=== PATIENT | female | born 1965 | race Caucasian/White ===

== ENCOUNTER 2016-10-31 05:19 | Observation (INO) | payer OTHER ==
[2016-10-31] VITALS (7 sets, daily range): BP systolic 143–183; BP diastolic 62–99; PULSE 64–77; RESP 12–26; O2SAT 97–99
[~2016-10-31] VITALS: Ht 170.2 cm; Wt 88.2 kg
[~2016-10-31 05:19] MED LIST: NO ACTIVE MEDS
[2016-10-31] MEDS ORDERED: 0.9% Sodium Chloride 1,000 ML IV ONE ×2 (05:42→06:39)
[2016-10-31] MEDS ORDERED: Haloperidol 5 mg/mL Inj IVPUSH ONE (05:45)
[2016-10-31] MEDS ORDERED: Ondansetron 2 mg/mL 2 mL Inj IVPUSH ONE (05:45)
[2016-10-31 05:52] LABS: BASOPHILS % (AUTO) 0.1 % (0-3); EOSINOPHILS % (AUTO) 0 % (0-5); MONOCYTES % (AUTO) 7.5 % (4-12); Mean Corpuscular Hemoglobin 30.6 pg (27.0-35.0); NEUTROPHILS % (AUTO) 83.4 % (40-74); Platelet Count 266 bil/L (150-400)
[2016-10-31 06:17] LABS: Magnesium 1.8 mg/dL (1.6-2.6)
--- NOTE | 2016-10-31 06:35 | ED.REPORT ---
HPI-Abd Pain F 40 and Over Date of Service Oct 31, 2016 ED Provider: Fredis Maynard MD Patient is a 51 y/o female w/ a hx of cyclic vomiting syndrome, presenting to the ER c/o right upper quadrant abdominal pain and vomiting onset 4 days ago. She rates her pain as 10/10 in severity. She has a history of similar acute episodes exhibited throughout the past 4 year and her last cyclic vomiting episode occurred in November of 2015. Associated symptoms are nausea, and cough. The patient denies back pain, fever, or any other symptoms. The patient does use marijuana but hasn't used for approximately 10 days. She has been seen at [facility] twice and [facility] once for these symptoms already. She was discharged with Zofran without relief. At [facility] yesterday, she was observed to have a run of afib. She does not take any medications daily. Nursing Notes Stated Complaint: VOMITING Chief Complaint: Female Abdominal Pain Nursing Notes Reviewed: Yes Allergies: Coded Allergies: codeine (Verified Allergy, Severe, ANGIOEDEMA, 10/31/16) throat swelling tetracycline (Verified Allergy, Severe, N&V, 10/31/16) doxycycline (Verified Allergy, Unknown, vomit, 10/31/16) Penicillins (Verified Adverse Reaction, Severe, GI UPSET, RASH, 10/31/16) Iodinated Contrast Media - Oral and (Verified Adverse Reaction, Unknown, ) Patient reports being told not to have iodine contrast because of "firecracker" feelings, refuses iodine contrast. Miscellaneous Medications ([No Active Meds]) General Time Seen by MD: 06:34 Chief Complaint Abdominal pain, Vomiting moderate Hx Obtained From: Patient Arrived By: Walk-in Sudden in Onset?: Yes Onset Occurred: Yesterday Symptom Duration: Since onset Progression since Onset: Constant Severity: Current: Pain level 10 out of 10 Severity: Maximum: Pain level 10 out of 10 Associated with: Reports: Nausea, Vomiting, Denies: Back pain Recent Healthcare: Recent doctor visit Similar Sx Previous: Yes Risk Factors )( AAA Risk Stratification No Hypertension, No Smoking Risk factors reviewed Past Medical History Past Medical History Cyclic vomiting syndrome - last acute episode November 2015 Past Surgical History endometrial ablation Bilat knee scope tumor removal R arm Reports: , Hysterectomy Smoking History Never Smoker Social History Marijuana use Alcohol Use: Denies alcohol use Drug Use: THC Other Social History: Good social support Ambulatory Status Independent Review of Systems Constitutional: Denies: Fever Respiratory: Reports: Non-productive cough GI: Reports: Abdominal pain, Nausea, Vomiting, Denies: Diarrhea Musculoskeletal: Denies: Back pain Complete sys rev & neg: except as marked. Physical Exam Vital Signs Vital Signs (First) Date Time Temp Pulse Resp B/P Pulse Ox O2 Delivery O2 Flow Rate FiO2 10/31/16 05:24 36.8 77 26 183/87 99 Initial VS: Reviewed, Vital signs normal Head / Eyes: Atraumatic, Normocephalic Neck: Full range of motion Skin: Warm, Dry, No cyanosis Neurologic: Alert, Oriented, Nonfocal General/Constitutional: Awake, Alert Distress / Hydration: Positive: Distress severe Pt is in severve distress, holding face over emesis basin. Pt is red faced, tearful, running nose, and crying out Respiratory / Chest: Breath sounds NL, Breath sounds = bilat, No respiratory distress, No rales, No rhonchi, No wheezing, No stridor Cardiovascular: Heart rate NL, Regular rhythm, Heart sounds NL Abdomen: Soft, No guarding Tenderness/Guarding/Rebound: Positive: Tender diffuse (mild) Back: Atraumatic Lower Extremity / Pelvis / MS: No edema Interpretation & Diagnostics Lab Results Interpretation Result Diagram: 10/31/16 0545 10/31/16 0545 Test 10/31/16 05:45 10/31/16 06:20 White Blood Count 21.0th/mm3 (3.8-10.1) Red Blood Count 4.57mil/mm3 (3.90-5.20) Hemoglobin 14.0g/dL (12.0-15.6) Hematocrit 40.2% (35.0-46.0) Mean Corpuscular Volume 88.0fL (81-100) Mean Corpuscular Hemoglobin 30.6pg (27.0-35.0) Mean Corpuscular Hemoglobin Concent 34.8% (32.0-37.0) Red Cell Distribution Width 12.9% (12.3-15.4) Platelet Count 266bil/L (150-400) Neutrophils (%) (Auto) 83.4% (40-74) Lymphocytes (%) (Auto) 8.6% (14-46) Monocytes (%) (Auto) 7.5% (4-12) Eosinophils (%) (Auto) 0% (0-5) Basophils (%) (Auto) 0.1% (0-3) Sodium Level 141mEq/L (134-144) Potassium Level 3.2mEq/L (3.5-5.2) Chloride Level 102mEq/L (97-108) Carbon Dioxide Level 19mmol/L (18-29) Blood Urea Nitrogen 15mg/dL (6-24) Creatinine 0.83mg/dL (0.57-1.00) Estimat Glomerular Filtration Rate 104mL/min (>59) Glucose Level 146mg/dL (60-99) Calcium Level 9.4mg/dL (8.5-10.1) Magnesium Level 1.8mg/dL (1.6-2.6) Total Bilirubin 0.7mg/dL (0.0-1.2) Aspartate Amino Transf (AST/SGOT) 24U/L (0-50) Alanine Aminotransferase (ALT/SGPT) 27U/L (0-32) Alkaline Phosphatase 94U/L (25-150) Total Protein 7.1g/dL (6.4-8.4) Albumin 4.1g/dL (3.4-5.0) Lipase 38U/L (13-60) Hold Morillo Top Tube Received (Received) Hold Urine Received (Received) Re-Eval/Medical Decision Re-Evaluation/Progress #1: Time of Eval: 06:45 Re-Evaluation/Progress Note: Pt rechecked. Discussed plan for admission. All questions answered at this time. Pt understands and agrees with plan. Re-Evaluation/Progress #2: Time of Eval: 07:22 Re-Evaluation/Progress Note: Pt rechecked. Pt reports to not feeling better but looks better. Pt is no longer vomiting and appears comfortable. Consultation : Referral / Consult Name: Liza Tuttle DO Consulted With: Hospitalist Call Returned at: 08:29 Ed Tech: Will see patient, Agrees with eval, Agrees with plan, Accepts admit Note: Discussed patients case. Accepts admit. Counseled Regarding: Diagnosis, Lab results, Need for admission Discharge & Departure Primary Impression: Cyclic vomiting syndrome Vomiting Intractability: intractable Nausea presence: with nausea Qualified Code: G43.A1 - Cyclical vomiting, intractable Disposition: ADMITTED TO HOSPITAL Discharge Condition All VS Reviewed: Yes Condition: Stable Referrals: Irma Sims MD (PCP) Scribe Attestation Portions of this note were transcribed by Breanna Ambrose & Angie Nur. I, Dr. Rivers personally performed the history, physical exam and medical decision-making; I reviewed and confirmed the accuracy of the information in the transcribed note. Signed by: Breanna Nur., Janak, 10/31/2016 and 08:31. copies to: Irma Sims MD, Kirk H MD Oct 31, 2016 06:34 Breanna Ambrose Oct 31, 2016 06:51 ANGIE NUR Oct 31, 2016 08:09
[2016-10-31] MEDS ORDERED: MetoCLOpramide 5 mg/mL 2 mL Inj IVPUSH ONE (06:40)
[2016-10-31] MEDS ORDERED: Acetaminophen IV 1,000 MG in IV Premix 1 EACH IV ONE (06:40)
[2016-10-31] MEDS ORDERED: Dexamethasone 10 mg/mL Inj IVPUSH ONE (06:40)
[2016-10-31] MEDS ORDERED: Promethazine Inj 50 MG in 0.9% Sodium Chloride-Pha MIX 100 ML IV ONE (06:40)
[2016-10-31] MEDS ORDERED: Alum-Mag Hydrox-Simeth 30 mL Suspension PO PRN (08:30)
--- NOTE | 2016-10-31 08:45 | NUR ---
Arrival Pt. arrived to room 247-1 MOC from the ED. Pt. arrived in pain stating her RUQ is hurting, 10/10 pain and feels nausea. Pt. states unable to take PO med. made aware. No c/o CP or SOB. Will continue to monitor.
[2016-10-31] MEDS: 0.9% Sodium Chloride 1,000 ML IV SCH ×2 (09:04→18:30)
[2016-10-31] MEDS ORDERED: Potassium Chloride 20 mEq SR Tablet PO ONE (09:10)
[2016-10-31] MEDS ORDERED: Promethazine Inj 12.5 MG in 0.9% Sodium Chloride-Pha MIX 100 ML IV ONE (10:50)
[2016-10-31] MEDS ORDERED: Morphine PF 1 mg/mL 10 mL Inj IV PRN (10:50)
[2016-10-31] MEDS ORDERED: Potassium Chloride Inj 20 MEQ in Dextrose 5% 250 ML IV ONE (10:50)
[2016-10-31 11:10] LABS: Lipase 38 U/L (13-60)
[2016-10-31] MEDS ORDERED: Acetaminophen IV 1,000 MG in IV Premix 1 EACH IV PRN (11:10)
[2016-10-31] MEDS: Ondansetron 2 mg/mL 2 mL Inj IVPUSH PRN ×2 (11:22→21:02)
[2016-10-31] MEDS ORDERED: Ondansetron 2 mg/mL 2 mL Inj IVPUSH PRN (11:30)
--- NOTE | 2016-10-31 13:22 | DRSVH ---
PROCEDURE: US ABDOMEN, LIMITED ([id number]) INDICATIONS: r/o cholecystitis TECHNIQUE: Real-time focused scanning was performed of the abdomen, with image documentation. COMPARISON: None. FINDINGS: No gallstones. Gallbladder wall is mildly thickened to 6-7 mm. Pericholecystic fluid not ed. Positive sonographic Iniguez sign noted. Common bile duct is not dilated measuring [address] IMPRESSION: Gallbladder wall thickening, pericholecystic fluid and positive sonographic Iniguez sign suspicious for acute acalculus cholecystitis. Dictated by: Kenzie Bah MD, PhD on 10/31/2016 at 13:20 Approved by: Kenzie Bah MD, PhD on 10/31/2016 at 13:21
--- NOTE | 2016-10-31 14:29 | PCM.CONSUR ---
Subjective Date of Service: Oct 31, 2016 History of Present Illness Patient is a 51-year-old female with history of cyclical vomiting syndrome who presented to [facility] ED this morning with 4 days of nausea and vomiting. Over the last 3 days she has been seen first in the [facility] emergency department and then also yesterday the [facility] emergency department. She states this is somewhat similar to her prior episodes of cyclic vomiting the most recent episode happened 10 months ago. The main difference with this is that she has right upper quadrant pain that is continuing to hang on. Typically episodes last one to 2 days and then she is fine afterward. She states that she does not usually suffer like this during prior episodes. She has experienced no fever or chills, but has heartburn and diarrhea. She is vomiting green bile but no hematemesis. She endorses smoking marijuana a couple of times per month. Even with her prior visits to the emergency department she has not been able to obtain pain relief for the last [address] scan done at [facility] 10/28/2016 did not show evidence of cholecystitis however ultrasound performed in the emergency department did show evidence of mild gallbladder thickening 6-7 mm and positive Iniguez's sign. Liver enzymes are normal, she has a leukocytosis of 21,000. Of note patient had EGD and colonoscopy 05/01/2016 which she reports were normal. Reason for Consultation Possible cholecystitis Allergy Allergies: Coded Allergies: codeine (Verified Allergy, Severe, ANGIOEDEMA, 10/31/16) throat swelling tetracycline (Verified Allergy, Severe, N&V, 10/31/16) doxycycline (Verified Allergy, Unknown, vomit, 10/31/16) Penicillins (Verified Adverse Reaction, Severe, GI UPSET, RASH, 10/31/16) Iodinated Contrast Media - Oral and (Verified Adverse Reaction, Unknown, ) Patient reports being told not to have iodine contrast because of "firecracker" feelings, refuses iodine contrast. Medications ([No Active Meds]) (Reported) Cephalexin (Keflex) 500 Mg Capsule 500 MG PO TID Prescribed by: ZEUS AGEE MD Pantoprazole DR (Protonix) 40 Mg Tablet 40 MG PO BID Prescribed by: ZEUS AGEE MD oxyCODONE-Acetaminophen 5-325 mg (oxyCODONE-Acetaminophen 5-325 mg) 1 Each Tablet 1 TAB PO Q6H PRN PRN For Pain Prescribed by: ZEUS AGEE MD Past Surgical History Surgeries: Yes Patient/Family Past Surgical: Positive for:: Accept Blood Products?, Denies:: Anesthesia Reactions, Blood Transfuse Reaction, Blood Transfusions, Malignant Hyperthermia Additional Information Patient had hysterectomy with bilateral salpingo-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 fib noted at [facility] yesterday.) Gastrointestinal History HX of GI Problems?: Yes Gastrointestinal History: Positive for:: Gastroesphageal Reflux Heartburn Other History Diabetes: Yes (Possible) Other History/Comments Patient works as a home care nurse and lives in [place]. She has 2 sons and . Social History Hx Alcohol Use: NoHx Substance Use: NoHx Tobacco Use: No Smoking Status: Never Smoker Family History Family History: Patient states no history of illness within first and second-degree relatives. Objective Exam Vital Signs & I/O Vital Sign- Last 8 Hours Date Time Temp Pulse Resp B/P Pulse Ox O2 Delivery O2 Flow Rate FiO2 10/31/16 08:36 36.8 66 12 143/62 99 Room Air 10/31/16 07:50 66 12 143/62 Intake and Output- Last 8 Hour 10/31/16 Cumulative From/Thru 07:00 10/31/16 05:24 - 10/31/16 06:00 Intake Total 1000 ml 1000 ml Balance 1000 ml 1000 ml Intake IV Total 1000 ml 1000 ml Lab & Micro Results Laboratory Tests Test 10/31/16 05:45 10/31/16 06:20 10/31/16 14:00 White Blood Count 21.0th/mm3 (3.8-10.1) Red Blood Count 4.57mil/mm3 (3.90-5.20) Hemoglobin 14.0g/dL (12.0-15.6) Hematocrit 40.2% (35.0-46.0) Mean Corpuscular Volume 88.0fL (81-100) Mean Corpuscular Hemoglobin 30.6pg (27.0-35.0) Mean Corpuscular Hemoglobin Concent 34.8% (32.0-37.0) Red Cell Distribution Width 12.9% (12.3-15.4) Platelet Count 266bil/L (150-400) Neutrophils (%) (Auto) 83.4% (40-74) Lymphocytes (%) (Auto) 8.6% (14-46) Monocytes (%) (Auto) 7.5% (4-12) Eosinophils (%) (Auto) 0% (0-5) Basophils (%) (Auto) 0.1% (0-3) Sodium Level 141mEq/L (134-144) Potassium Level 3.2mEq/L (3.5-5.2) Chloride Level 102mEq/L (97-108) Carbon Dioxide Level 19mmol/L (18-29) Blood Urea Nitrogen 15mg/dL (6-24) Creatinine 0.83mg/dL (0.57-1.00) Estimat Glomerular Filtration Rate 104mL/min (>59) Glucose Level 146mg/dL (60-99) Calcium Level 9.4mg/dL (8.5-10.1) Magnesium Level 1.8mg/dL (1.6-2.6) Total Bilirubin 0.7mg/dL (0.0-1.2) Aspartate Amino Transf (AST/SGOT) 24U/L (0-50) Alanine Aminotransferase (ALT/SGPT) 27U/L (0-32) Alkaline Phosphatase 94U/L (25-150) Total Protein 7.1g/dL (6.4-8.4) Albumin 4.1g/dL (3.4-5.0) Amylase Level 33U/L (28-100) Lipase 38U/L (13-60) Hold Morillo Top Tube Received (Received) Hold Urine Received (Received) Result Diagram: 10/31/1654410/31/16544 Review of Systems: A comprehensive review of systems was conducted with the patient and found to be negative except as above in the History of Present Illness. H&P Surgical Exam Exam General: Alert, Oriented X3, Moderate Distress HEENT: Within normal limits & unremarkable Neck: Within normal limits & unremarkable Cardiac: Regular Rate/Rhythm Abdomen: Other (right upper quadrant pain to palpation) Assessment & Plan Assessment 51-year-old female with history of cyclic vomiting syndrome has 4 days of nausea and emesis with persistent right upper quadrant pain. Patient had normal EGD and colonoscopy 6 months ago. Abdominal ultrasound shows possible thickening of the gallbladder wall and positive Iniguez's sign with probe though CT scan on 10/28/16 at [facility] showed no evidence of acute cholecystitis or cholelithiasis. HIDA scan ordered by hospitalist team. Case discussed with Dr. Bonilla of gastroenterology. He is willing to perform EGD if symptoms persist after cholecystectomy or gallbladder disease is ruled out. Upon recheck patient reiterates that this episode is different than previous episodes and is really suffering, she would prefer to go ahead with cholecystectomy. Risks and benefits of the procedure were discussed. She is aware that there is a possibility that this procedure may not completely relieve her symptoms. Pain Management: Per hospitalist team Pain Evaluation: Pain not Controlled Plan: 1. Immediate Cholecystectomy was not possible due to emergent urologic case therefore we will proceed with HIDA scan. Cholecystectomy pending results of HIDA scan. Risks and benefits of cholecystectomy were discussed. 2. If symptoms persist once cholecystitis is ruled out or postprocedure, recommend formal GI consult with possible EGD. 3. Pain control and antibiotics per hospitalist team. Thank you for this interesting consult, we will continue to follow. Resuscitation Status: CPR: Attempt Resuscitation Attending Statement: I personally interviewed and examined the pt, and I agree with Dr. Purvis's assessment and plan. HIDA scan pending. copies: Rigoberto Rush MD, Erika R DO Oct 31, 2016 14:29 Rigoberto Rush MD Nov 03, 2016 06:59 Lipase 38U/L (13-60) Hold Morillo Top Tube Received (Received) Hold Urine Received (Received) Result Diagram: 10/31/16 0545 10/31/1645 Review of Systems: Constitutional: Negative, except as otherwise mentioned in the history above. Ophthalmologic: Negative, except as otherwise mentioned in the history above. Cardiovascular: Negative, except as otherwise mentioned in the history above. Respiratory: Negative, except as otherwise mentioned in the history above. Gastrointestinal: Negative, except as otherwise mentioned in the history above. Genitourinary: Negative, except as otherwise mentioned in the history above. Musculoskeletal: Negative, except as otherwise mentioned in the history above. Neurological: Negative, except as otherwise mentioned in the history above. Psychiatric: Negative, except as otherwise mentioned in the history above. Hematologic/Lymphatic: Negative, except as otherwise mentioned in the history above. Allergic/Immunologic: Negative, except as otherwise mentioned in the history above. Sonali Purvis DO Oct 31, 2016 14:29
[2016-10-31 14:30] LABS: INR 1.05 ratio
--- NOTE | 2016-10-31 14:37 | NUR ---
Social Work Note: Screen Note Data& Assessment: EMR reviewed. SW met with pt and pt son at bedside to check in and assess for any unmet needs, SW role explained. SW phone number provided on pt whiteboard. Justyna Bobby is a 51 year old female under observation beginning on 10/31/2016 for intractable nausea and vomiting. Pt has [facility] insurance coverage and sees Yogi Sims MD for primary care. Pt lives in [place] with family and is independent at baseline. Pt son confirmed good family support at home. Pt primary complaint at this time is having her pain managed. RN aware. Pt and pt son deny any other needs at this time. SW to continue to follow if any other needs arise. Plan: Anticipated discharge home via POV when medically ready. Pt and pt son deny any other needs at this time. SW to continue to follow if any other needs arise. DAISY Doan
[2016-10-31] MEDS ORDERED: Pantoprazole 4 mg/mL 10 mL Inj IVPUSH ONE (15:30)
[2016-10-31] MEDS: Ampicillin-Sulbactam Inj 3,000 MG in 0.9% Sodium Chloride 100 ML IV SCH ×2 (15:53→21:07)
--- NOTE | 2016-10-31 16:13 | NUR ---
Pain/Heart Burn/HIDA Scan Pt. still c/o of anterior RUQ pain that radiates to her posterior RUQ. Pt. also states feeling intense heart mike and requesting zantac. Hospitalist was made aware and Dr. Rush put in an order for protonix IV push once. I administered med. and Pt. states "heart burn" is subsiding. Pt. is NPO for HIDA scan that is estimated to start at ~1800 today (10/31/2016). Pt. made aware that no narcotics can be given for pain. Pt. states she understands. Will continue to monitor.
--- NOTE | 2016-10-31 18:43 | NUR ---
Pain/BP Pt. still c/o RUQ pain and heart burn. Pt. NPO for HIDA scan at about 1900 and is not to be given narcotics prior to procedure. Pt. was given a Kpad to help with pain but she states "feeling no difference". Pts. blood pressure at ~1630 was 173/99, made aware. Will continue to monitor.
--- NOTE | 2016-10-31 20:49 | NUR ---
Off Unit Pt is off unit with Jessica at 1900 to diagnostic imaging via bed. Addendum: 10/31/16 at 2051 by CAT DIANE RN Pt is back on unit at 2044
--- NOTE | 2016-10-31 21:00 | PCM.HPMED ---
Subjective Date of Service Oct 31, 2016 Primary Provider: Admitting Physician: Liza Tuttle DO Primary Care Physician: Irma Sims MD Attending Physician: Liza Tuttel DO Chief Complaint: nausea, RUQ pain History of Present Illness: Patient is a 51-year-old female with history of cyclical vomiting syndrome who presented to [facility] ED this morning with 3 days of nausea and vomiting. Over the last 3 days she has been seen first in the [facility] emergency department and then also yesterday the [facility] emergency department. She states this is somewhat similar to her prior episodes of cyclic vomiting the most recent of those episodes happened 10 months ago. The symptoms are more severe this time. Typically episodes for her last one to 2 days and then she is fine afterward. She states that she does not usually suffer during prior episodes. She c/o nausea but has no epigastric pain. She does endorse radiation of RUQ pain to the thoracic spine. She has anorexia. She denies hematemesis and hematochezia. At the time of this interview she has just come from the ED, has received number of anti emetic medications as well as ativan and was very sleepy. She endorses smoking marijuana once every 10 days. States "I doubt it" if she knew marijuana would cause nausea and vomiting. CT scan done at [facility] 10/28/2016 did not show evidence of cholecystitis however ultrasound performed in the emergency department did show evidence of possible gallbladder thickening and positive Iniguez's sign. Liver enzymes are normal, she has a leukocytosis of 21,000. Potassium was 3.2. Patient denies fever, chills, recent weight loss/weight gain. She has some back pain, but denies chest pain, leg pain, leg swelling, urinary problems. She was given haldol, phenergan, reglan, decadron and atival all IV in the ED. She says she had absolutely no relief after all these agents. She is not responding to my questions very well but her son was in the room and was very helpful with the interview. Review of Systems: Gen.: No weight gain patient has been having fevers and malaise Eyes: no visual disturbances or blurring vision HEENT: No nose/throat drainage, no pain in ears or throat, no hearing loss Cardiac: No chest pain, or dyspnea Pulmonary: positive for cough, denies chest pain GI: No anorexia nausea vomiting blood or black in the stool : no dysuria hematuria urinary frequency or decrease in urine output Musculoskeletal: Joint swelling no joint pain , positive for back pain Neuro: No syncope, seizures no loss of consciousness no new focal weakness, numbness or tingling Endocrine: No new heat or cold intolerances polyuria or polydipsia Hematology: No lymphadenopathy or easy bleeding or bruising noted skin: No new rashes, stasis dermatitis All review of systems negative except as stated in the HPI and above. Allergies Coded Allergies: codeine (Verified Allergy, Severe, ANGIOEDEMA, 10/31/16) throat swelling tetracycline (Verified Allergy, Severe, N&V, 10/31/16) doxycycline (Verified Allergy, Unknown, vomit, 10/31/16) Penicillins (Verified Adverse Reaction, Severe, GI UPSET, RASH, 10/31/16) Iodinated Contrast Media - Oral and (Verified Adverse Reaction, Unknown, ) Patient reports being told not to have iodine contrast because of "firecracker" feelings, refuses iodine contrast. Home Medications She does not take home meds PMH Cyclical vomiting syndrome Surgical History , hysterectomy, endometrial ablation, B/Knee scope, tumor removal from R arm Family History Works as a homecare nurse, is a heavy truck driver. Never smoked tobacco, murillo snot drink. Recreational marjuana once every ten days. Lives with her Social History Occupation: homecare nurse Hx Alcohol Use: Yes Hx Substance Use: No Hx Tobacco Use: No Smoking Status: Never Smoker Living Arrangement: with Family Exam Vital Signs Vital Sign - Last Date Time Temp Pulse Resp B/P Pulse Ox O2 Delivery O2 Flow Rate FiO2 10/31/16 08:36 36.8 66 12 143/62 99 Room Air Intake and Output 10/30/16 10/30/16 10/31/16 Cumulative From/Thru 15:00 23:00 07:00 10/31/16 05:24 - 10/31/16 06:00 Intake Total 1000 ml 1000 ml Balance 1000 ml 1000 ml Intake IV Total 1000 ml 1000 ml Exam General: NAD, laying in bed, not actively vomiting. Only answering questions intermittently HEENT: NCAT Eyes: [place] conjunctivae. No ptosis Neck: No masses, trachea midline, no thyromegaly Lungs: CTA with normal respiratory effort, no crackles or wheezes CV: RRR, no murmurs/rubs/gallops, normal PMI GI: Soft, RUQ tenderness is present with no hepatosplenomegaly. Normal bowel sounds in all 4 quadrants MSK: no digital cyanosis Skin: Warm and dry Psych: mood is tired, affect resigned Lab and Diagnostics Result Diagram: 10/31/1645 10/31/1645 X-Rays, CTs and MRIs PROCEDURE: US ABDOMEN, LIMITED ([id number]) INDICATIONS: r/o cholecystitis TECHNIQUE: Real-time focused scanning was performed of the abdomen, with image documentation. COMPARISON: None. FINDINGS: No gallstones. Gallbladder wall is mildly thickened to 6-7 mm. Pericholecystic fluid noted. Positive sonographic Iniguez sign noted. Common bile duct is not dilated measuring 4 mm in diameter. IMPRESSION: Gallbladder wall thickening, pericholecystic fluid and positive sonographic Iniguez sign suspicious for acute acalculus cholecystitis. Dictated by: Kenzie Bah MD, PhD on 10/31/2016 at 13:20 Approved by: Kenzie Bah MD, PhD on 10/31/2016 at 13:21 Assessment & Plan This is a 51-year-old white female with Past medical history of cyclical vomiting syndrome, presenting to the ER with right upper quadrant pain and uncontrollable nausea and vomiting. CT abdomen done in [facility] prior to this admission is negative for cholelithiasis cystitis or cholelithiasis. Assessment #1 RUQ pain: Acalculous Cholecystitis biliary colic -- She has no elevation in LFT, ordered pancreatic enzymes both of which are negative. No hyperbilirubinemia, no fevers -- She did have right upper quadrant tenderness on palpation, ordered a ultrasound of right upper quadran that is revealing for positive sonographic Iniguez sign, and thickened gallbladder gould. It was read as a Calculus cholecystitis. --Consult Gen Surg -- Started patient on Unasyn ( she reportedly has a penicillin allergy but tolerated the first dose finding, discussed this with pharmacy and they feel it is okay to continue to give her the medication as she has had no rash or increase in her baseline symptoms) -- Gen. surgery initially planned on taking her to the OR after discussing risks and benefits with patient but it appears surgery got postponed due to an unexpected urological the OR -- Ordered HIDA scan: Results are pending -- Zofran for nausea control ( we chose this agent because all other agents have not worked for patient and as she got enough of all the other IV agents so far, Zofran will probably be the safest choice) -- Morphine for pain control (verified with pt that she has toelrated it fine in the past) Assessment #2 elevated blood pressures: -- Enalapril 0.625 mg Q6H PRN with parameters #3 Hypokalemia: -- Tried depleting with by mouth agent, patient declined -- Give her IV 20 mEq of potassium -- We will continue to monitor -- Magnesium lab is ordered and within normal #4 Hyperglycemia : Blood glucose was 140 fasting -- A1c is ordered Disposition: Patient agreed for cholecystectomy as this will rule out gallbladder as etiology of her pain and nausea vomiting. We will pursue GI consult for EGD if her pain and symptoms do not resolve after cholecystectomy. Pain Evaluation: Adequate Pain Control GI Prophylaxis: Proton Pump Inhibitor VTE Prophylaxis: Sub-Q Heparin (Unfractionated) Resuscitation Status: CPR: Attempt Resuscitation (her son is her POA, followed by her ) Time spent 35 min Liza Tuttle DO Oct 31, 2016 09:07
--- NOTE | 2016-10-31 21:16 | DRSVH ---
PROCEDURE: NM HIDA SCAN WITH CCK PHARMACEUTICAL: 5.4 mCi Tc-99m mebrofenin IV; 1.8 mcg CCK IV. INDICATIONS: NAUSEA AND VOMITING. R/O BILIARY CHOLIC. TECHNIQUE: Following intravenous administration of Tc-99m mebrofenin, sequential anterior abdominal images were obtained. To evaluate the contractile response of the gallbladder in response to Cholecystokinin (CC K), sincalide (0.02 g/kg) was administered by slow intravenous infusion approximately 60 minutes aft er the administration of the radiopharmaceutical. Sequential imaging was continued for [address] the start of CCK infusion. Gallbladder ejection fraction was calculated. COMPARISON: None. FINDINGS: Biliary scan: There is normal tracer uptake and excretion by the liver. There is normal visualizati on of the intrahepatic ducts, common bile duct, and gallbladder. There is normal tracer transit into the duodenum. CCK stimulation: There is normal contractile response of the gallbladder to CCK infusion. The calcu lated gallbladder ejection fraction is 47%; normal values are above 35%. It has been shown that any patient abdominal pain after CCK administration is related to the rate of CCK injection, rather than to any underlying gallbladder disease (Clinical Nuclear Medicine 2012; 37: 63-70. Journal of Nuclear Medicine 2014; 55: 1-9). IMPRESSION: Normal examination. Dictated by: Kenzie Bah MD, PhD on 10/31/2016 at 21:13 Approved by: Kenzie Bah MD, PhD on 10/31/2016 at 21:15
[2016-11-01] VITALS (15 sets, daily range): BP systolic 136–177; BP diastolic 79–99; PULSE 58–100; RESP 14–30; O2SAT 93–100
[2016-11-01] MEDS: Heparin 5,000 Unit/mL Inj SUBQ SCH ×3 (00:42→17:36)
[2016-11-01] MEDS: 0.9% Sodium Chloride 1,000 ML IV SCH ×2 (01:00→18:57)
[2016-11-01] MEDS: Ampicillin-Sulbactam Inj 3,000 MG in 0.9% Sodium Chloride 100 ML IV SCH ×3 (02:19→13:00)
[2016-11-01] MEDS: Ondansetron 2 mg/mL 2 mL Inj IVPUSH PRN ×2 (02:30→05:46)
--- NOTE | 2016-11-01 06:15 | NUR ---
Nausea/Pain Pt had pain controlled after HIDA scan and nausea was reactive to Zofran. However this morning around 0530 pt had very increased pain and nausea that so far has not reacted as well to the morphine and Zofran. Pt is dry heaving and was only able to get a little bit of clear phlegm up. Pain during dry heaves is 10/10 and 6/10 at baseline. Addendum: 11/01/16 at 06 by CAT DIANE RN MD burks.
[2016-11-01] MEDS ORDERED: Morphine PCA 1 mg/mL 30 mL Inj IV PRN (06:35)
[2016-11-01] MEDS ORDERED: MetoCLOpramide 5 mg/mL 2 mL Inj IVPUSH PRN (06:35)
[2016-11-01 06:42] LABS: Mean Corpuscular Volume 86.2 fL (81-100)
[2016-11-01] MEDS ORDERED: Pantoprazole 4 mg/mL 10 mL Inj IVPUSH SCH (07:30)
[2016-11-01] MEDS ORDERED: Promethazine 50 mg/mL Inj IV PRN (08:50)
--- NOTE | 2016-11-01 08:55 | PCM.PNSURG ---
Subjective Visit Information: Reason for Visit Intractable Nausea/Vomiting Surgery/Surgery Date Post-Op Day # Date of Admission: Oct 31, 2016 at 08:34 Hospital Day # Subjective: yesterday evening underwent a HIDA scan --> normal exam. Pt still complains of nausea and upper abd pain and heartburn Objective Objective arousable in bed Abd: mild tenderness subxiphoid location and RUQ, no peritoneal signs WBC slightly lower at 17.5 today Vital Sign- Last 8 Hours Date Time Temp Pulse Resp B/P Pulse Ox O2 Delivery O2 Flow Rate FiO2 11/01/16 02:24 36.7 58 16 149/88 95 Room Air Intake and Output- Last 8 Hour 11/01/16 Cumulative From/Thru 07:00 10/31/16 05:24 - 11/01/16 05:26 Intake Total 997 ml 1997 ml Balance 997 ml 1997 ml Intake IV Total 997 ml 1997 ml # Voids 3 3 Result Diagram: 11/01/16 0608 11/01/16 0608 Assessment & Plan Impression Upper abd pain, nausea, heartburn Hx of cyclic vomiting syndrome Conflicting US report with a normal HIDA scan Problems: Plan Recommend upper endoscopy by GI service Continue IV abx for now Anti-nausea meds VTE Prophylaxis: Sub-Q Heparin (Unfractionated) Resuscitation Status: CPR: Attempt Resuscitation (her son is her POA, followed by her ) Rigoberto Rush MD Nov 01, 2016 08:55
[2016-11-01] MEDS ORDERED: Lactated Ringer's 1,000 ML IV ONE ×2 (10:10)
--- NOTE | 2016-11-01 10:41 | PCM.ENDEGD ---
EGD Date of Service: Nov 01, 2016 Physician Liza Tuttle DO Pre Procedure Diagnosis: Abdominal pain Post Procedure Dx & Findings: Erosive esophagitis gastric erosions and duodenal superficial ulcers Procedure Esophagogastroduodenoscopy PROCEDURE IN DETAIL: After proper sedation, Olympus video endoscope was inserted into patient's mouth and esophagus was successfully intubated. Scope introduced esophagus. Esophagus showed normal shiny whitish mucosa consistent with squamous cell component. Z line was noted at 40 cm from the incisors. Circumferential inflammation and exudate consistent with ulcerative esophagitis. LA grade C and D. This was biopsied. Scope further advanced to the stomach. With the exception of the antrum, the stomach showed normal shiny mucosa with normal appearing rugae folds without any ulcer mass erosion. Antrum showed some millimeter erosions. This was biopsied. Cardia fundus body antrum pylorus were all visualized. Retroflexion was done. Stomach was easily inflated and deflatable using air. Scope further events to the distal duodenum. Duodenum revealed normal villous structures and folds. However patient had several superficial linear ulcerations noted from the bulb to the first pass of the duodenum. Some of the linear ulceration was long as about a centimeter. Biopsies obtained. Impression Erosive esophagitis severe. Gastric erosion. Duodenumal superficial ulcers. These findings are not not acute. Patient had these symptoms 3 days ago. I have hard time believing that findings cause severe symptoms 3 days ago. Therefore cholecystitis is still in differential. Recommendation We did not find acute cause of her abdominal pain. Therefore reconsult surgery. Start protonix 40 mg IV Q daily for 2 days then switch to Protonix 40 mg PO Q daily Repeat EGD in 8 weeks to cjeck for esophageal healing Stop all NSIAD's. Presedation Assessment Risks and Benefits Informed consent was obtained from the patient after all risks and benefits including but not limited to drug reaction, infection, pain, bleeding, perforation, as well as alternatives were discussed. Patient monitoring Continuous pulse oximetry, cardiac monitoring, blood pressure monitoring, IV access, and oxygen at 2L per nasal cannula. Complications There were no periprocedural complications identified. Post Procedure Plan Post Procedure Recommendations 1. Restrict activities today. 2. Resume normal activities in the morning. 3. Resume medications. 4. GERD behavioral modification: - Avoid fatty, acidic, spicy, large meals - Do not lie down after meals - Do not eat or drink anything for at least 2 1/2 hours before going to bed at night - Discontinue tobacco and alcohol - Decrease or avoid caffeine - Avoid chocolate and mints - Decrease weight - Avoid aspirin and non steroidal anti-inflammatory agents (NSAID) such as Aleve, Advil, Mobic, Naproxen, Ibuprofen, etc 5. Add proton pump inhibitor. Take 30 minutes before 1st meal of the day. 6. Patient informed of normal post procedure side effects as bloating, drowsiness, blood streaking in the stool 7. If gastric biopsy reveal H.pylori, continue with appropriate treatment 8. If small bowel biopsy reveals celiac, continue with appropriate treatment 9. Please don't hesitate to call me with any questions Jay Bonilla MD Nov 01, 2016 10:41
--- NOTE | 2016-11-01 10:42 | PCM.ANEP1 ---
Post Anesthesia PACU Phase 1 Assessment Vital Signs Vital Signs Date Time Temp Pulse Resp B/P Pulse Ox O2 Delivery O2 Flow Rate FiO2 11/01/16 10:35 71 16 171/90 97 Room Air 11/01/16 10:30 64 16 158/84 100 Nasal Cannula 4 11/01/16 10:27 36.7 67 23 175/86 97 Nasal Cannula 4 11/01/16 10:03 36.3 72 16 136/83 95 Room Air 11/01/16 08:53 36.9 60 18 177/88 97 Room Air Anesthetic Administered: GA Level of Alertness: Awake, talking SARABIA's with Equal Strength: Yes Pain: Yes Pain Scale Score: 3 Nausea or Vomiting: No CV Function & Hydration Stable: Yes Airway Device: Oxygen Delivery: Room Air Lungs: Clear to Auscultation, Normal Air Movement Dermatome Level: T2 ([place]) PACU Phase 2 Assessment Complications: No Follow up Care: N/A Patient Instructions Provided: N/A Giancarlo Mathis MD Nov 01, 2016 10:42
--- NOTE | 2016-11-01 10:42 | PCM.HPANE ---
Patient Data Surgeon Admitting Provider:Liza Tuttle DO Attending Provider:Liza Tuttle DO Primary Care Physician:Irma Sims MD Other Provider: Reason for Visit Intractable Nausea/Vomiting Ht/WT & BMI Height (Feet): 5 Height (Inches): 7 Weight (Kilograms): 88.18 Body Mass Index Allergies Coded Allergies: codeine (Verified Allergy, Severe, ANGIOEDEMA, 10/31/16) throat swelling tetracycline (Verified Allergy, Severe, N&V, 10/31/16) doxycycline (Verified Allergy, Unknown, vomit, 10/31/16) Penicillins (Verified Adverse Reaction, Severe, GI UPSET, RASH, 10/31/16) Iodinated Contrast Media - Oral and (Verified Adverse Reaction, Unknown, ) Patient reports being told not to have iodine contrast because of "firecracker" feelings, refuses iodine contrast. Past Anesthesia History Anesthesia History: Denies:: Abnormal Airway, Anesthesia Reactions, Difficult Intubation, Fam Anesthesia Reaction, Fam Malignant Hypertherm, Malignant Hyperthermia Diabetes History Hx Diabetes?: Yes (Possible) MRSA MRSA: No Medications Reported Medications [No Active Meds] No Conflict Check 02/20/14 History History of ENT Problems?: No HEENT History: Denies:: Abnormal Airway Cataracts Difficult Intubation Dysphagia Glaucoma Hearing Problem Sinus Problem TMJ Denture Type: None Teeth Condition: Missing Teeth Hx of Heart Problems?: No Cardiovascular History: Positive for:: AICD Abdominal Aortic Aneurism Atrial Fibrillation Cardiac Surgery Chest Pain Congestive Heart Failure Coronary Artery Disease Edema Heart Murmur (ECHO 04/2013) Hypertension Irregular Heartbeat (C/OF PALPITATIONS one run of A. fib noted at [facility] yesterday.) Pacemaker Peripheral Vascular Rheumatic Fever Thrombophlebitis Valvular Heart Disease Hx of Respiratory Problem?: No Respiratory History: Denies:: Asthma COPD Chest Surgery Cough Dyspnea Emphysema Hemoptysis Oxygen Administration Pneumonia Pulmonary Embolism Tuberculosis Use of C-PAP Machine Use of Inhalers / NEBS Hx Neurologic Problems?: No Neurological History: Denies:: Alzheimer's Disease CVA Dementia Dizziness Headaches Multiple Sclerosis Parkinson's Disease Peripheral Neuropathy Seizures TIA Hx of GI Problems?: Yes Gastrointestinal History: Positive for:: Gall Bladder Disease Gastroesphageal Reflux Denies:: Cirrhosis Diverticulitis Gastrointestinal Bleeding Heartburn Hepatitis Hiatal Hernia Liver Disease Rectal Bleeding Hx of Problems?: No Genitourinary History: Denies:: HX of Hemodialysis Kidney Stones Urinary Tract Infection HX of Peritoneal Dialysis: No Female Hx: Denies:: Currently Endometriosis Pelvic Inflammatory Problems with Breasts? Skin History: Denies:: History Skin Disorders? Pressure Ulcers Hx Musculoskeletal Problems?: No Musculoskeletal History: Denies:: Back Injury Degenerative Joint Fibromyalgia Joint Replacement Musculoskeletal Trauma Myasthenia Gravis Osteoarthritis Rheumatoid Arthritis Systemic Lupus Psycho Social History: Denies:: Anxiety Bipolar Disorder Hx Depression Suicide Attempt Hx Surgeries?: Yes Hx Any Other Health Problems?: No History Blood Transfusions: Positive for:: Accept Blood Products? Denies:: Blood Transfuse Reaction Blood Transfusions Hx Diabetes: Yes (Possible) Occupation: homecare nurse Hx Alcohol Use: YesHx Substance Use: No Smoking Status: Never Smoker Have You Smoked inLast 12 mo: Yes (Marijuana) Stop/Bang Treated for Sleep Apnea?: No Do You Have a CPAP Machine?: No S-Snoring: Do You Snore Loudly: No T-Tired: feel tired, fatigued: No O-Obsered: Observed not breath: No P-Blood Pressure: treated: No B- Body Mass Index > 35 kg/m2: No A- Age over 50: Yes N- Neck Large Circumference: No G- Gender Male: No SHAWN Total Score: 0 Risk Assessment Category Category 1A: Patient has history of documented sleep apnea, and HAS NOT received any narcotic, sedative or anesthesia administration during this stay. Category 1B: Patient has history of documented sleep apnea, and HAS received any narcotic , sedative or anesthesia administration during this stay Category 2: Patient has SUSPECTED Obstructive Sleep Apnea, and HAS received any narcotic , sedative or anesthesia administration during this stay. Category 3: Patient has SUSPECTED Obstructive Sleep Apnea and HAS NOT received narcotic, sedative or anesthesia administration during this stay. Category 4: Outpatient in Procedural Areas with known sleep apnea or who screen positive for High Risk via the STOP/BANG questionnaire. Exam Exam Vital Signs Vital Signs Date Time Temp Pulse Resp B/P Pulse Ox O2 Delivery O2 Flow Rate FiO2 11/01/16 08:53 36.9 60 18 177/88 97 Room Air 11/01/16 02:24 36.7 58 16 149/88 95 Room Air General Appearance: Alert, Oriented X3, Moderate Distress HEENT/AIRWAY: MP 2, Neck Movement (FROM) Lungs: Clear to Auscultation, Normal Air Movement Heart: Exam Unremarkable, Regular Rate/Rhythm, No Murmurs/Rubs/Gallops Meds/Labs/Diagnostics Admission Meds Current Medications Potassium Chloride/Dextrose/ Water (Potassium Chloride Inj/D5W) 260 ml @ 130 mls/hr ONCE ONCE IV Last administered on 10/31/16 11:49; Start 10/31/16 at 10: 50; Stop 10/31/16 at 12:49; Status DC Pantoprazole 40 mg 40 mg DAILYAC IVPUSH Last administered on 11/01/16 06:42; Start 11/01/16 at 07:30 Ampicillin Sodium/ Sulbactam Sodium/ Sodium Chloride (Unasyn Inj/ Normal Saline ) 100 ml @ 200 mls/hr Q6 IV Last administered on 11/01/16 02:19; Start at 14:30; Stop 11/01/16 at 08:49; Status DC Pantoprazole (Protonix Inj) 40 mg ONCE ONCE IVPUSH Last administered on 15:39; Start 10/31/16 at 15:30; Stop 10/31/16 at 15:32; Status DC Heparin Sodium (Porcine) (Heparin Inj) 5,000 unit Q8 SUBQ Last administered on 11/01/16 08:37; Start 11/01/16 at 00:30 Labs Test 10/31/16 05:45 10/31/16 06:20 10/31/16 14:00 11/01/16 06:08 Neutrophils (%) (Auto) 83.4% (40-74) Lymphocytes (%) (Auto) 8.6% (14-46) Monocytes (%) (Auto) 7.5% (4-12) Eosinophils (%) (Auto) 0% (0-5) Basophils (%) (Auto) 0.1% (0-3) Magnesium Level 1.8mg/dL (1.6-2.6) Amylase Level 33U/L (28-100) Lipase 38U/L (13-60) Hold Morillo Top Tube Received (Received) Hold Urine Received (Received) Prothrombin Time 11.2sec (8.1-12.5) Prothromb Time International Ratio 1.05ratio White Blood Count 17.5th/mm3 (3.8-10.1) Red Blood Count 4.70mil/mm3 (3.90-5.20) Hemoglobin 14.1g/dL (12.0-15.6) Hematocrit 40.5% (35.0-46.0) Mean Corpuscular Volume 86.2fL (81-100) Mean Corpuscular Hemoglobin 30.0pg (27.0-35.0) Mean Corpuscular Hemoglobin Concent 34.8% (32.0-37.0) Red Cell Distribution Width 12.9% (12.3-15.4) Platelet Count 250bil/L (150-400) Sodium Level 140mEq/L (134-144) Potassium Level 3.7mEq/L (3.5-5.2) Chloride Level 103mEq/L (97-108) Carbon Dioxide Level 18mmol/L (18-29) Blood Urea Nitrogen 14mg/dL (6-24) Creatinine 0.94mg/dL (0.57-1.00) Estimat Glomerular Filtration Rate 90mL/min (>59) Glucose Level 108mg/dL (60-99) Calcium Level 9.2mg/dL (8.5-10.1) Total Bilirubin 0.8mg/dL (0.0-1.2) Aspartate Amino Transf (AST/SGOT) 22U/L (0-50) Alanine Aminotransferase (ALT/SGPT) 34U/L (0-32) Alkaline Phosphatase 89U/L (25-150) Total Protein 6.3g/dL (6.4-8.4) Albumin 4.0g/dL (3.4-5.0) Plan Impression Patient chart reviewed, patient interviewed and anesthestic plan with risks, benefits, and alternatives discussed, and informed consent obtained. NPO per Anesth. Guidelines: Yes ASA Physical Status: ASA3 Severe Disease Anesthetic Plan: GA, MAC Bene/Risks/Altern/Consents: Yes HP Complete Prior to Induction: Yes Giancarlo Mathis MD Nov 01, 2016 09:52
--- NOTE | 2016-11-01 11:01 | CONS ---
[address] [address] CONSULTATION REPORT PATIENT: EMORY FRY : 1965 MR#: [id number] ADMIT: 10/31/2016 JOB ID: [id number] DATE OF SERVICE: REASON FOR CONSULTATION: It was pleasure seeing the patient at [facility] GI service for abdominal pain. HISTORY OF PRESENT ILLNESS: This is a 51-year-old lady who had a EGD and colonoscopy done when she was 50 and she was told everything was okay. This was all done in April. However she comes in with cyclic vomiting syndrome with abdominal pain for the past 3 days. She went to several emergency rooms. She went to [facility] and the day before she went to [facility]. They discharged her after giving her IV fluids and medical treatment. She also had similar episode more than 10 months ago and this resolved on its own. However, symptoms are now more severe. This is increased intensity with intensity of the pain and nausea and vomiting. Essentially she has had multiple episodes of nausea and vomiting. Then this was followed by cramping right upper quadrant pain radiating to her back. It does not seem to go away. Because it was getting worse, she came to the emergency department especially with nausea, vomiting, and inability to keep anything down. In the emergency department, they did an ultrasound which showed gallbladder wall thickening 5-6 mm with pericholecystic fluids with positive Iniguez sign. Liver enzymes are normal. She had leukocytosis of 21,[address] Rush saw this patient. Dr. Rush did a HIDA scan and HIDA scan was normal. Therefore he contacted me yesterday saying this is definitely not cholecystitis and wanted my evaluation to see the cause of abdominal pain. When I saw her this morning, she was on BEHAVIORAL HEALTH CASE MANAGER pump due to the pain and the BEHAVIORAL HEALTH CASE MANAGER pump was improving the symptoms. She is still nauseated. No vomiting this morning, but she has not eaten anything. No fever, chills, headaches, blurred vision, dizziness, lightheadedness, chest pain, shortness of breath. Abdominal pain pretty much the same as she described above. No blood in the stools or black stools. Denies skin rash, joint pain. No easy bruising. PAST MEDICAL HISTORY: Cyclic vomiting. PAST SURGICAL HISTORY: Hysterectomy, , endometrial ablation, tumor removal of the right arm. FAMILY HISTORY: Noncontributory. SOCIAL HISTORY: She is a home care nurse. Denies history of alcohol, substance abuse, or tobacco, but she does use marijuana once every 10 days. PHYSICAL EXAMINATION: Vital signs include temp of 36.3, pulse 72, respirations 16, blood pressure 136/83. Head and neck no icterus, no lymphadenopathy. Lungs clear. Cardiovascular regular rate and rhythm, normal S1, S2. Abdomen is soft. Right upper quadrant tenderness mild without guarding rebound or firmness, however with Iniguez sign. Extremities: No pitting edema of the ankles. Skin shows no jaundice. No palmar erythema. No Wayne's nails No Dupuytren's contracture. LABORATORY DATA: White count is 17,500, hemoglobin 14.1, platelets of 250,000. Coags: INR of 1.05. Chemistry LFTs showed ALT of 34, AST of 22, total bili of 6.3. Yesterday ALT was 23, which was absolutely normal. Amylase and lipase were normal. IMPRESSION: This is a 51-year-old lady with abdominal pain. Dr. Rush believes this is not consistent with cholecystitis. However, there is some evidence such as the thickened gallbladder wall and pericholecystic fluid. This in my opinion that there is inflmmation. HIDA scan was normal. I had a long conversation with Dr. Rush, the surgeon, who was not planning on taking the gallbladder out because he does not believe that this is cholecystitis. On my examination and my history, I think cholecystitis is still in the differential. However, because other differential could be peptic ulcer disease, we will do the esophagogastroduodenoscopy. Patient was placed n.p.o. EGD - If EGD does not explain the acute abd pain, please consider doing CT of abdomen and pelvis to find other causes of abd pain other than gallbladder. MTDD
[2016-11-01] MEDS ORDERED: Promethazine Inj 12.5 MG in Dextrose 5%-Pha MIX 50 ML IM PRN (11:25)
[2016-11-01] MEDS ORDERED: Propofol 10,000 mCg/mL 20 mL Inj ONE ×2 (12:29→16:20)
[2016-11-01] MEDS ORDERED: Neostigmine 1 mg/mL 10 mL Inj ONE (12:29)
[2016-11-01] MEDS ORDERED: Dexamethasone 4 mg/mL Inj ONE (12:29)
[2016-11-01] MEDS ORDERED: Glycopyrrolate 0.2 mg/mL 5 mL Inj ONE (12:29)
[2016-11-01] MEDS ORDERED: Rocuronium 10 mg/mL 5 mL Inj ONE (12:29)
[2016-11-01] MEDS ORDERED: fentaNYL-PF 50 mCg/mL 2 mL Inj ONE (12:29)
[2016-11-01] MEDS ORDERED: MetoCLOpramide 5 mg/mL 2 mL Inj ONE (12:29)
[2016-11-01] MEDS ORDERED: Remifentanil 1 mg/3 mL Inj ONE (12:29)
[2016-11-01] MEDS ORDERED: Ondansetron 2 mg/mL 2 mL Inj ONE (12:29)
--- NOTE | 2016-11-01 13:00 | NUR ---
Surgery Pt transported via stretcher to surgery. Lap/amber procedure. Pt given Dilaudid 4mg IV push prior to surgery, and 12.5 mg Phenergan IV given. Pt saline locked prior to departure. Addendum: 11/01/16 at 1547 by BARBI JAMES RN Pt returned from surgery @ 1530. No c/o of pain or nausea at this time. VSS. Pt eating ice chips, and drinking apple juice. Son at bedside.
--- NOTE | 2016-11-01 13:04 | PROG NOTE ---
[address] [address] PROGRESS NOTE PATIENT: EMORY FRY : 1965 MR#: [id number] ADMIT: 10/31/2016 JOB ID: [id number] DATE: The patient came into the hospital yesterday with upper abdominal pain and severe nausea and heartburn. Patient has had several conflicting studies which included a CT scan at an outside hospital on 10/28 which showed no gallbladder findings; however, an ultrasound yesterday morning showed gallbladder wall thickening and pericholecystic fluid and positive sonographic Iniguez sign, suspicious for acute acalculous cholecystitis. Yesterday evening, patient underwent a HIDA scan which demonstrated normal filling of the gallbladder and a normal ejection fraction. The patient underwent an EGD by the GI service early this morning and the findings from the endoscopy do not support her clinical findings. Dr. Bonilla's recommendation is to proceed to laparoscopic cholecystectomy. Patient is also in agreement and believes it is her gallbladder. Patient does have elevated WBC and upper abd pain and tenderness on exam. I have discussed the pros and cons of proceeding to cholecystectomy. I have included the possibility that she may not be any better after cholecystectomy. The risks of the operation including pain, bleeding, infection, enteric injury, bile leak, or common bile duct injury were all discussed. Patient and her son understand that her clinical situation is not straightforward, they are willing to forego any additional testing (eg. repeat CT scan) and proceed to cholecystectomy at this point. They are accepting the surgical risks. I have also discussed her case with the hospitalist service. I will arrange for laparoscopic cholecystectomy today. MERY
[2016-11-01] MEDS ORDERED: Phenylephrine 10,000 mCg/mL Inj IVPUSH PRN (13:35)
[2016-11-01] MEDS ORDERED: Labetalol 5 mg/mL 4 mL Inj IV PRN (13:35)
[2016-11-01] MEDS ORDERED: EPHEDrine Sulfate 50 mg/mL Inj IVPUSH PRN (13:35)
[2016-11-01] MEDS ORDERED: HYDROmorphone 1 mg/mL Inj IVPUSH PRN (13:35)
[2016-11-01] MEDS ORDERED: Lactated Ringer's 500 ML IV PRN (13:35)
[2016-11-01] MEDS ORDERED: Ondansetron 2 mg/mL 2 mL Inj IVPUSH PRN (13:35)
[2016-11-01] MEDS ORDERED: Lactated Ringer's 1,000 ML IV SCH (13:35)
--- NOTE | 2016-11-01 13:35 | PCM.HPANE ---
Patient Data Surgeon Admitting Provider:Liza Tuttle DO Attending Provider:Liza Tuttle DO Primary Care Physician:Irma Sims MD Other Provider: Reason for Visit Intractable Nausea/Vomiting Ht/WT & BMI Height (Feet): 5 Height (Inches): 7 Weight (Kilograms): 88.18 Body Mass Index 30.00 Allergies Coded Allergies: codeine (Verified Allergy, Severe, ANGIOEDEMA, 10/31/16) throat swelling tetracycline (Verified Allergy, Severe, N&V, 10/31/16) doxycycline (Verified Allergy, Unknown, vomit, 10/31/16) Penicillins (Verified Adverse Reaction, Severe, GI UPSET, RASH, 10/31/16) Iodinated Contrast Media - Oral and (Verified Adverse Reaction, Unknown, ) Patient reports being told not to have iodine contrast because of "firecracker" feelings, refuses iodine contrast. Past Anesthesia History Anesthesia History: Denies:: Abnormal Airway, Anesthesia Reactions, Difficult Intubation, Fam Anesthesia Reaction, Fam Malignant Hypertherm, Malignant Hyperthermia Diabetes History Hx Diabetes?: Yes (Possible) MRSA MRSA: No Medications Reported Medications [No Active Meds] No Conflict Check 02/20/14 History History of ENT Problems?: No HEENT History: Denies:: Abnormal Airway Cataracts Difficult Intubation Dysphagia Glaucoma Hearing Problem Sinus Problem TMJ Denture Type: None Teeth Condition: Missing Teeth Hx of Heart Problems?: No Cardiovascular History: Positive for:: AICD Abdominal Aortic Aneurism Atrial Fibrillation Cardiac Surgery Chest Pain Congestive Heart Failure Coronary Artery Disease Edema Heart Murmur (ECHO 04/2013) Hypertension Irregular Heartbeat (C/OF PALPITATIONS one run of A. fib noted at [facility] yesterday.) Pacemaker Peripheral Vascular Rheumatic Fever Thrombophlebitis Valvular Heart Disease Hx of Respiratory Problem?: No Respiratory History: Denies:: Asthma COPD Chest Surgery Cough Dyspnea Emphysema Hemoptysis Oxygen Administration Pneumonia Pulmonary Embolism Tuberculosis Use of C-PAP Machine Use of Inhalers / NEBS Hx Neurologic Problems?: No Neurological History: Denies:: Alzheimer's Disease CVA Dementia Dizziness Headaches Multiple Sclerosis Parkinson's Disease Peripheral Neuropathy Seizures TIA Hx of GI Problems?: Yes Gastrointestinal History: Denies:: Cirrhosis Diverticulitis Gall Bladder Disease Gastroesphageal Reflux Gastrointestinal Bleeding Heartburn Hepatitis Hiatal Hernia Liver Disease Rectal Bleeding Hx of Problems?: No Genitourinary History: Denies:: HX of Hemodialysis Kidney Stones Urinary Tract Infection HX of Peritoneal Dialysis: No Female Hx: Denies:: Currently Endometriosis Pelvic Inflammatory Problems with Breasts? Skin History: Denies:: History Skin Disorders? Pressure Ulcers Hx Musculoskeletal Problems?: No Musculoskeletal History: Denies:: Back Injury Degenerative Joint Fibromyalgia Joint Replacement Musculoskeletal Trauma Myasthenia Gravis Osteoarthritis Rheumatoid Arthritis Systemic Lupus Psycho Social History: Denies:: Anxiety Bipolar Disorder Hx Depression Suicide Attempt Hx Surgeries?: Yes Hx Any Other Health Problems?: No Other History: Denies:: Cancer Endocrine Disease Hospitalization Thyroid Disease History Blood Transfusions: Positive for:: Accept Blood Products? Denies:: Blood Transfuse Reaction Blood Transfusions Hx Diabetes: Yes (Possible) Occupation: homecare nurse Hx Alcohol Use: YesHx Substance Use: No Smoking Status: Never Smoker Have You Smoked inLast 12 mo: Yes (Marijuana) Stop/Bang Treated for Sleep Apnea?: No Do You Have a CPAP Machine?: No S-Snoring: Do You Snore Loudly: No T-Tired: feel tired, fatigued: No O-Obsered: Observed not breath: No P-Blood Pressure: treated: No B- Body Mass Index > 35 kg/m2: No A- Age over 50: Yes N- Neck Large Circumference: No G- Gender Male: No SHAWN Total Score: 1 Risk Assessment Category Category 1A: Patient has history of documented sleep apnea, and HAS NOT received any narcotic, sedative or anesthesia administration during this stay. Category 1B: Patient has history of documented sleep apnea, and HAS received any narcotic , sedative or anesthesia administration during this stay Category 2: Patient has SUSPECTED Obstructive Sleep Apnea, and HAS received any narcotic , sedative or anesthesia administration during this stay. Category 3: Patient has SUSPECTED Obstructive Sleep Apnea and HAS NOT received narcotic, sedative or anesthesia administration during this stay. Category 4: Outpatient in Procedural Areas with known sleep apnea or who screen positive for High Risk via the STOP/BANG questionnaire. Exam Exam Vital Signs Vital Signs Date Time Temp Pulse Resp B/P Pulse Ox O2 Delivery O2 Flow Rate FiO2 11/01/16 10:42 Room Air 11/01/16 10:35 71 16 171/90 97 Room Air 11/01/16 10:30 64 16 158/84 100 Nasal Cannula 4 11/01/16 10:27 36.7 67 23 175/86 97 Nasal Cannula 4 11/01/16 10:03 36.3 72 16 136/83 95 Room Air 11/01/16 08:53 36.9 60 18 177/88 97 Room Air General Appearance: Alert, Oriented X3, Moderate Distress HEENT/AIRWAY: MP 2, Neck Movement (FROM) Lungs: Clear to Auscultation, Normal Air Movement Heart: Exam Unremarkable, Regular Rate/Rhythm, No Murmurs/Rubs/Gallops Meds/Labs/Diagnostics Admission Meds Current Medications Pantoprazole 40 mg 40 mg DAILYAC IVPUSH Last administered on 11/01/16 06:42; Start 11/01/16 at 07:30 Ampicillin Sodium/ Sulbactam Sodium/ Sodium Chloride (Unasyn Inj/ Normal Saline ) 100 ml @ 200 mls/hr Q6 IV Last administered on 11/01/16 02:19; Start at 14:30; Stop 11/01/16 at 08:49; Status DC Pantoprazole (Protonix Inj) 40 mg ONCE ONCE IVPUSH Last administered on 15:39; Start 10/31/16 at 15:30; Stop 10/31/16 at 15:32; Status DC Heparin Sodium (Porcine) 5000 unit 5,000 unit Q8 SUBQ Last administered on 08:37; Start 11/01/16 at 00:30 Lactated Ringer's 1,000 ml @ STK-MED ONCE IV Last administered on 11/01/16 10:10; Start 11/01/16 at 10:10; Stop 11/01/16 at 10:11; Status Cancel Lactated Ringer's (Lr) 1,000 ml @ STK-MED ONCE IV Last administered on 10:25; Start 11/01/16 at 10:10; Stop 11/01/16 at 10:25; Status DC Labs Test 10/31/16 05:45 10/31/16 06:20 10/31/16 14:00 11/01/16 06:08 Neutrophils (%) (Auto) 83.4% (40-74) Lymphocytes (%) (Auto) 8.6% (14-46) Monocytes (%) (Auto) 7.5% (4-12) Eosinophils (%) (Auto) 0% (0-5) Basophils (%) (Auto) 0.1% (0-3) Magnesium Level 1.8mg/dL (1.6-2.6) Amylase Level 33U/L (28-100) Lipase 38U/L (13-60) Hold Morillo Top Tube Received (Received) Hold Urine Received (Received) Prothrombin Time 11.2sec (8.1-12.5) Prothromb Time International Ratio 1.05ratio White Blood Count 17.5th/mm3 (3.8-10.1) Red Blood Count 4.70mil/mm3 (3.90-5.20) Hemoglobin 14.1g/dL (12.0-15.6) Hematocrit 40.5% (35.0-46.0) Mean Corpuscular Volume 86.2fL (81-100) Mean Corpuscular Hemoglobin 30.0pg (27.0-35.0) Mean Corpuscular Hemoglobin Concent 34.8% (32.0-37.0) Red Cell Distribution Width 12.9% (12.3-15.4) Platelet Count 250bil/L (150-400) Sodium Level 140mEq/L (134-144) Potassium Level 3.7mEq/L (3.5-5.2) Chloride Level 103mEq/L (97-108) Carbon Dioxide Level 18mmol/L (18-29) Blood Urea Nitrogen 14mg/dL (6-24) Creatinine 0.94mg/dL (0.57-1.00) Estimat Glomerular Filtration Rate 90mL/min (>59) Glucose Level 108mg/dL (60-99) Calcium Level 9.2mg/dL (8.5-10.1) Total Bilirubin 0.8mg/dL (0.0-1.2) Aspartate Amino Transf (AST/SGOT) 22U/L (0-50) Alanine Aminotransferase (ALT/SGPT) 34U/L (0-32) Alkaline Phosphatase 89U/L (25-150) Total Protein 6.3g/dL (6.4-8.4) Albumin 4.0g/dL (3.4-5.0) Plan Impression Patient chart reviewed, patient interviewed and anesthestic plan with risks, benefits, and alternatives discussed, and informed consent obtained. NPO per Anesth. Guidelines: Yes ASA Physical Status: ASA3 Severe Disease Anesthetic Plan: GA Bene/Risks/Altern/Consents: Yes HP Complete Prior to Induction: Yes Other As EGD did not provide a definitive cause of the patients current issues, Dr. Rush decided that the best course of action was to follow with a laparoscopic cholecystectomy. Giancarlo Mathis MD Nov 01, 2016 12:22
[2016-11-01] MEDS ORDERED: Bupivacaine-MPF 0.5% 30 mL Inj INFILTRATE ONE (13:38)
--- NOTE | 2016-11-01 14:45 | PCM.ANEP1 ---
Post Anesthesia PACU Phase 1 Assessment Vital Signs Vital Signs Date Time Temp Pulse Resp B/P Pulse Ox O2 Delivery O2 Flow Rate FiO2 11/01/16 14:40 91 30 156/99 93 Room Air 11/01/16 14:35 36.6 100 21 160/94 100 Simple Mask 10 11/01/16 10:42 Room Air 11/01/16 10:35 71 16 171/90 97 Room Air 11/01/16 10:30 64 16 158/84 100 Nasal Cannula 4 11/01/16 10:27 36.7 67 23 175/86 97 Nasal Cannula 4 11/01/16 10:03 36.3 72 16 136/83 95 Room Air 11/01/16 08:53 36.9 60 18 177/88 97 Room Air Anesthetic Administered: GA Level of Alertness: Awake, talking SARABIA's with Equal Strength: Yes Pain: Yes Pain Scale Score: 10 Nausea or Vomiting: No CV Function & Hydration Stable: Yes Airway Device: Oxygen Delivery: Room Air Lungs: Clear to Auscultation, Normal Air Movement Dermatome Level: Full Sensation PACU Phase 2 Assessment Complications: No Follow up Care: N/A Patient Instructions Provided: N/A Giancarlo Mathis MD Nov 01, 2016 14:45
[2016-11-01] MEDS: fentaNYL-PF 50 mCg/mL 2 mL Inj IVPUSH PRN ×2 (15:00→15:07)
--- NOTE | 2016-11-01 16:59 | OP ---
[address] [address] OPERATIVE REPORT PATIENT: EMORY FRY : 1965 MR#: [id number] ADMIT: 10/31/2016 JOB ID: [id number] DATE OF SURGERY: 11/01/2016 SURGEON: Rigoberto Rush MD. SUPERVISOR ADULT EDUCATION: Corey Morales PA-C, and also Sonali Purvis DO. ANESTHESIA: General. PREOPERATIVE DIAGNOSIS(ES): Possible acalculous cholecystitis. POSTOPERATIVE DIAGNOSIS(ES): Possible acalculous cholecystitis. PRINCIPAL PROCEDURE: Laparoscopic cholecystectomy. INDICATION FOR PROCEDURE: The patient is a 51-year-old female with a history of cyclical vomiting syndrome who presented with several days of upper abdominal pain and nausea, vomiting. The patient has had several conflicting studies, with an outside CT scan on October 28, which was normal, an ultrasound here yesterday that suggests gallbladder wall thickening and pericholecystic fluid and possible acalculous cholecystitis, last night she had a normal HIDA scan and this morning she had an EGD by GI service. Patient still has elevated white blood count and upper abdominal symptoms. PRINCIPAL FINDING: The gallbladder was not gangrenous. It actually appeared benign. However, during dissection there was some edema within the wall of the gallbladder which suggests mild cholecystitis. A cholangiogram was attempted. However, I was not able to cannulate the cystic duct because it was rather small. Therefore, the cholangiogram was abandoned. PROCEDURE COURSE: Patient was brought to the operating table and was provided with general anesthesia. The patient had received preoperative IV antibiotics and she was provided with SCDs. A time-out was performed. The patient's abdomen was then prepped and draped in the usual sterile fashion. Insufflation through the infraumbilical site was not successful. Therefore a left upper quadrant site was chosen and insufflation through this location was successful. Next, a 5 mm port was then placed at the infraumbilical location. A 12 mm trocar was then placed in the subxiphoid location, and two additional 5 mm trocars were then placed in the right lateral abdomen, all under direct visualization. The gallbladder appeared to be soft and without any signs of gangrene. The gallbladder was able to be grasped and elevated cephalad. Dissection of the Calot triangle was then performed. During the dissection the gallbladder wall did demonstrate some edema and fluid which suggests mild cholecystitis. The cystic duct was able to be circumferentially isolated. A clip was then placed on the gallbladder/cystic duct junction, and a partial transection of the cystic duct was made. The cystic duct was rather small and the cholangiocatheter was not able to be completely cannulated into the cystic duct and we had contrast extravasation. After several attempts, decision was made to abandon the cholangiogram. Two additional clips were then placed on the proximal cystic duct and then the cystic duct was then transected. The cystic artery was similarly identified, clipped, and divided. Electrocautery was then used to detach the gallbladder from the gallbladder fossa. The specimen was then placed into the EndoCatch bag and removed from the patient. Irrigation of the right upper quadrant was carried out and suctioned. Inspection of the clips showed that they were intact and there were no signs of arterial bleeding or bile leak at the end the case. Next, we turned our attention to the subxiphoid port. The fascial defect there was then reapproximated using 0 Vicryl suture using the EndoClose device. Next, CO2 was allowed to escape and all the trocars were then removed from the patient. All five port sites were then closed using absorbable sutures. Steri-Strips and sterile dressing were then placed over each wound. By the end of procedure, needle counts and sponge counts were correct. Of note, there was no other abdominal pathology noted during the procedure. CC: Liza Tuttle MD.
[2016-11-01] MEDS ORDERED: Ampicillin-Sulbactam Inj 3,000 MG in 0.9% Sodium Chloride 100 ML IV ONE (19:00)
--- NOTE | 2016-11-01 20:32 | PCM.PNMED ---
Subjective Date of Service Nov 01, 2016 Subjective Patient is seen and examined this a.m. she is much more alert and awake, she is on morphine TENTER FEEDER pump per night team. She says that she was okay for the most part of the night but this a.m. she had to request more pain medication. She states that her nausea is still not better, she is fairly convinced is her gallbladder that is causing her issues. Still complains of right upper quadrant tenderness Exam Vital Signs Vital Sign - Last Date Time Temp Pulse Resp B/P Pulse Ox O2 Delivery O2 Flow Rate FiO2 11/01/16 15:21 36.8 64 16 158/89 96 Nasal Cannula 2.00 Intake and Output 10/31/16 10/31/16 11/01/16 Cumulative From/Thru 15:00 23:00 07:00 10/31/16 05:24 - 11/01/16 05:26 Intake Total 997 ml 1997 ml Balance 997 ml 1997 ml Intake IV Total 997 ml 1997 ml # Voids 3 3 Exam Gen.: No acute distress, patient is pleasant and cooperative HEENT: Normocephalic atraumatic Heart: Regular rate and rhythm no S3-S4 sounds Lungs: No crackles and wheezes, clear to auscultation Abdominal exam: Severe tenderness to right upper quadrant palpation. Normal bowel sounds, soft nondistended Psych: Negative for anxiety and agitation Neuro: No focal deficits IVs and Medications IV Fluids Normal saline 100 mL Medications Reviewed: Medications were reviewed in detail Lab and Diagnostics Result Diagram: 11/01/16 0608 11/01/16 0608 X-Rays, CTs and MRIs PROCEDURE: US ABDOMEN, LIMITED ([id number]) INDICATIONS: r/o cholecystitis TECHNIQUE: Real-time focused scanning was performed of the abdomen, with image documentation. COMPARISON: None. FINDINGS: No gallstones. Gallbladder wall is mildly thickened to 6-7 mm. Pericholecystic fluid noted. Positive sonographic Iniguez sign noted. Common bile duct is not dilated measuring 4 mm in diameter. IMPRESSION: Gallbladder wall thickening, pericholecystic fluid and positive sonographic Iniguez sign suspicious for acute acalculus cholecystitis. Dictated by: Kenzie Bha MD, PhD on 10/31/2016 at 13:20 Approved by: Kenzie Bah MD, PhD on 10/31/2016 at 13:21 Additional Diagnostics PROCEDURE: NM HIDA SCAN WITH CCK PHARMACEUTICAL: 5.4 mCi Tc-99m mebrofenin IV; 1.8 mcg CCK IV. INDICATIONS: NAUSEA AND VOMITING. R/O BILIARY CHOLIC. IMPRESSION: Normal examination Dictated by: Kenzie Bah MD, PhD on 10/31/2016 at 21:13 Approved by: Kenzie Bah MD, PhD on 10/31/2016 at 21:15 PROCEDURE: US ABDOMEN, LIMITED ([id number]) INDICATIONS: r/o cholecystitis IMPRESSION: Gallbladder wall thickening, pericholecystic fluid and positive sonographic Iniguez sign suspicious for acute acalculus cholecystitis. Dictated by: Kenzie Bah MD, PhD on 10/31/2016 at 13:20 Approved by: Kenzie Bah MD, PhD on 10/31/2016 at 13:21 Assessment & Plan This is a 51-year-old white female with Past medical history of cyclical vomiting syndrome, presenting to the ER with right upper quadrant pain and uncontrollable nausea and vomiting. CT abdomen done in [facility] prior to this admission is negative for cholelithiasis cystitis or cholelithiasis. Assessment #1 Acalculous Cholecystitis -- She has no elevation in LFT, ordered pancreatic enzymes both of which are negative. No hyperbilirubinemia, no fevers -- HIDA scan was negative -- She did have right upper quadrant tenderness on palpation, ordered a ultrasound of right upper quadrant that is revealing for positive sonographic Iniguez sign, and thickened gallbladder gould. It was read as aCalculus cholecystitis. -- Consult Gen Surg: General surgery has seen the patient, reviewed the imaging , and discussed options with patient. After talking with GI they have decided to take the patient to the OR. Patient underwent cholecystectomy later in the day, and according to Dr. Rush had felt immediate relief. -- Started patient on Unasyn ( she reportedly has a penicillin allergy but tolerated the first dose finding, discussed this with pharmacy and they feel it is okay to continue to give her the medication as she has had no rash or increase in her baseline symptoms) -- Zofran for nausea control ( we chose this agent because all other agents have not worked for patient and as she got enough of all the other IV agents so far, Zofran will probably be the safest choice) -- Morphine for pain control (verified with pt that she has tolerated it fine in the past) -- We will appreciate general surgery's support and recommendations. Assessment #2 erosive esophagitis: -- It is felt that nausea could have been due to GERD patient reportedly has had EGD with normal results end of last year -- GI is consulted: They have taken patient for scope and diagnosed her with esophagitis -- They recommend IV Protonix 40 mg twice a day, may convert to PO when she starts PO -- We will appreciate GI recommendations Assessment #2 Elevated blood pressures: -- Enalapril 0.625 mg Q6H PRN with parameters -- Consider converting to by mouth lisinopril once she starts eating #3 Hypokalemia, present on admission: Resolved -- Repleted at the time of admission -- Continue to monitor #4 Hyperglycemia : Blood glucose was 140 fasting -- A1c is ordered Disposition: Patient agreed for cholecystectomy as this will rule out gallbladder as etiology of her pain and nausea vomiting. She is reportedly feeling much better. She continues to feel better tomorrow she can be discharged home on pain control Pain Evaluation: Adequate Pain Control GI Prophylaxis: Proton Pump Inhibitor VTE Prophylaxis: Sub-Q Heparin (Unfractionated) Resuscitation Status: CPR: Attempt Resuscitation (her son is her POA, followed by her ) Time spent 25 minutes Liza Tuttle DO Nov 01, 2016 20:31
[2016-11-01] MEDS: Pantoprazole 4 mg/mL 10 mL Inj IVPUSH SCH (22:00)
[2016-11-02] MEDS: 0.9% Sodium Chloride 1,000 ML IV SCH ×2 (00:30→10:30)
[2016-11-02] MEDS: Heparin 5,000 Unit/mL Inj SUBQ SCH ×2 (00:40→09:34)
[2016-11-02 02:45] VITALS: BP 117/72; PULSE 85; RESP 16; O2SAT 93
--- NOTE | 2016-11-02 04:26 | NUR ---
Pain/Activity pt reported 5/10 RUQ pain x1 during this shift. administered PRN IVP 4mg Morphine. 1/2hr later, pt reported pain relief on rate of 0/10. pt has been ambulating in room independently. gait steady. pt tolerated clear liquid diet. no N/V. VS is WNL. 5 Lap amber site C/D/I. Will continue to monitor.
[2016-11-02 05:57] VITALS: BP 145/80; PULSE 66; RESP 16; O2SAT 93
[2016-11-02 07:06] LABS: BASOPHILS % (AUTO) 0.1 % (0-3); EOSINOPHILS % (AUTO) 0.6 % (0-5); MONOCYTES % (AUTO) 7.3 % (4-12); Mean Corpuscular Hemoglobin 30.3 pg (27.0-35.0); Mean Corpuscular Volume 89.8 fL (81-100); NEUTROPHILS % (AUTO) 78.6 % (40-74); Platelet Count 209 bil/L (150-400)
[2016-11-02 07:18] LABS: Magnesium 2.2 mg/dL (1.6-2.6)
--- NOTE | 2016-11-02 08:12 | PCM.PNSURG ---
Subjective Date of Service: Nov 02, 2016 Date of Service: Nov 02, 2016 Visit Information: Reason for Visit Intractable Nausea/Vomiting Surgery/Surgery Date laparoscopic cholecystectomy/ November 01, 2016 Post-Op Day # 1 Date of Admission: Oct 31, 2016 at 08:34 Hospital Day # 3 Subjective: Patient reports feeling "night and day" better. She is having some abdominal soreness but no more pain like she was having. She has no nausea or vomiting. She is passing gas but has not had a bowel movement. She has no fever or chills. She received morphine for pain this morning but would like to switch to Tylenol. She also requested docusate to help her have a bowel movement. Postop General: No Shortness of Breath, No Chest Pain Gastrointestinal: Tolerating Oral Feedings (clears and crackers), No N/V Pain Management: IV Push (morphine) Postop Activity: Ambulating Independently Objective Vital Sign- Last 8 Hours Date Time Temp Pulse Resp B/P Pulse Ox O2 Delivery O2 Flow Rate FiO2 11/02/16 05:57 36.9 66 16 145/80 93 Room Air 11/02/16 02:45 36.9 85 16 117/72 93 Room Air Intake and Output- Last 8 Hour 11/02/16 Cumulative From/Thru 07:00 10/31/16 05:24 - 11/02/16 06:09 Intake Total 200 ml 3842 ml Output Total 800 ml Balance 200 ml 3042 ml Intake Oral 200 ml 200 ml IV Total 3642 ml Output Urine Total 800 ml # Voids 4 9 General: Alert, Oriented X3, No Acute Distress Neck: Supple Lungs: Clear to Auscultation, Normal Air Movement Heart: Regular Rate/Rhythm Abdomen: Soft, Non-distended, Normoactive bowel tones SURGICAL WOUND : Wound Location/Description 5 trocar sites on abdomen Wound General Appearence: Steri Strips, Intact, No Erythema, No Discharge Dressing & Drainage Status: Intact Extremities: Warm Neuro: Grossly Neurologically Intact Catheters: None Result Diagram: 11/02/1662111/02/16621 Assessment & Plan Impression 51-year-old female with history of cyclical vomiting syndrome presented with 4 days of nausea and vomiting. On October [address] scan without evidence of cholecystitis at [facility]. Upon presentation to our emergency department on 09/30/2016 she had an ultrasound that was read as acute acalculous cholecystitis. HIDA scan was normal. Patient underwent EGD which showed esophagitis on 11/01/2016. Later that day she had cholecystectomy after which time her symptoms have improved. Problems: Plan 1. Advance diet as tolerated 2. Pain control with Tylenol 3. Docusate to promote bowel movement 4. Patient is surgically stable to discharge. Recommend follow-up with surgery team in 4 weeks. Pain Management: IV morphine changing to by mouth Tylenol. VTE Prophylaxis: Sub-Q Heparin (Unfractionated) Resuscitation Status: CPR: Attempt Resuscitation (her son is her POA, followed by her ) Attending Statement: I agree with Dr. Purvis's assessment and plan. F/U with Surgery Clinic in 2 weeks. copies to: Rigoberto Rush MD, Erika R DO Nov 02, 2016 07:57 Rigoberto Rush MD Nov 04, 2016 08:09
[2016-11-02] MEDS: Pantoprazole 4 mg/mL 10 mL Inj IVPUSH SCH (09:34)
[2016-11-02 09:40] VITALS: BP 151/88; PULSE 72; RESP 20; O2SAT 96
[2016-11-02] MEDS ORDERED: oxyCODONE-Acetamin 5-325 mg Tablet PO PRN (10:10)
--- NOTE | 2016-11-02 10:17 | PCM.DIMED ---
Discharge Instructions Date of Service Nov 02, 2016 Dates of Hospitalization Oct 31, 2016 at 08:34 Discharge Diagnosis Discharge Diagnosis # Acalculous Cholecystitis s/p cholecystectomy on 11/01/16 # erosive esophagitis: Diet Discharge Diet: Low fat, Low Sodium Activity Discharge Activity: Limited until seen by PCP Call your provider Call your provider for: Fever or Chills, Shortness of breath, Bleeding, Chest pain, Vomitting, Excessive diarrhea, Weakness (unilateral) Patient Instructions Patient Instructions You were hospitalized due to nausea and vomiting . workup ( Ultrasound ) revealed possible cholecystitis and underwent cholecystectomy . Please continue Augmentin for 3 more days . You also had endoscopy which showed severe erosive esophagitis .Please take protonix as prescribed and follow GERD behavioral modification: - Avoid fatty, acidic, spicy, large meals - Do not lie down after meals - Do not eat or drink anything for at least 2 1/2 hours before going to bed at night - Discontinue tobacco and alcohol - Decrease or avoid caffeine - Avoid chocolate and mints - Decrease weight - Avoid aspirin and non steroidal anti-inflammatory agents (NSAID) such as Aleve, Advil, Mobic, Naproxen, Ibuprofen, etc Please follow up with surgeon Dr Rush in 2 weeks and also follow up with Dr Chad Walsh in 3-4 weeks for repeat endoscopy to make sure esophagus is healing . Follow-up with PCP in: 1 week (Dr Raymundo aguilar ) Provider: Rigoberto Rush MD Follow-up in: 2 weeks Mid-level Provider (F9): Jay Bonilla MD Follow-up with Mid-level in: 4 weeks Aryan Bolivar MD Nov 02, 2016 10:17
[2016-11-02] MEDS ORDERED: PANT40TA2 PO (10:19)
[2016-11-02] MEDS ORDERED: CEPH-512 PO (10:19)
[2016-11-02] MEDS ORDERED: OXYC1TAB24 PO (10:19)
[2016-11-02] MEDS ORDERED: Promethazine Inj 12.5 MG in Dextrose 5%-Pha MIX 50 ML IV PRN (10:35)
--- NOTE | 2016-11-02 12:56 | NUR ---
Discharge 1230 Pt able to tolerate meals, Amb sol indep Pain controlled with tylenol. Reviewed DC instructions with patient and . Stated understanding. Pt taken out in w/ch to home in private vehicle. All belongings taken.
--- NOTE | 2016-11-02 13:04 | NUR ---
Social Work: Discharge D: EMR reviewed. Pt is on day 2 of hospitalization. Pt will discharge today per MD. Pt and pt son deny any discharge needs at this time. SW to continue to follow if any other needs arise. A: Pt who is independent at baseline P: Pt to discharge home today via POV. Pt and pt son deny any discharge needs at this time. SW to continue to follow if any other needs arise. DAISY Gómez
--- NOTE | 2016-11-02 13:08 | PCM.DC.MED ---
Discharge Summary Date of Service Nov 02, 2016 Dates of Hospitalization Date of Hospital Admission Oct 31, 2016 at 08:34 Date of Discharge: Nov 02, 2016 Providers: Admitting Physician: Liza Tuttle DO Primary Care Physician: Irma Sims MD Attending Physician: Liza Tuttle DO Diagnosis at Time of Discharge Diagnosis at Time of Discharge # Acalculous Cholecystitis s/p cholecystectomy on 11/01/16 # erosive esophagitis: Consultations surgery Dr Rush GI Dr Bonilla Procedures XRay, CTs & MRIs PROCEDURE: US ABDOMEN, LIMITED ([id number]) INDICATIONS: r/o cholecystitis TECHNIQUE: Real-time focused scanning was performed of the abdomen, with image documentation. COMPARISON: None. FINDINGS: No gallstones. Gallbladder wall is mildly thickened to 6-7 mm. Pericholecystic fluid noted. Positive sonographic Iniguez sign noted. Common bile duct is not dilated measuring 4 mm in diameter. IMPRESSION: Gallbladder wall thickening, pericholecystic fluid and positive sonographic Iniguez sign suspicious for acute acalculus cholecystitis. Dictated by: Kenzie Bah MD, PhD on 10/31/2016 at 13:20 Approved by: Kenzie Bah MD, PhD on 10/31/2016 at 13:21 Invasive Procedures DATE OF SURGERY: 11/01/2016 SURGEON: Rigoberto Rush MD. CAMERA STORAGE CLERK: Corey Morales PA-C, and also Sonali Purvis DO. ANESTHESIA: General. PREOPERATIVE DIAGNOSIS(ES): Possible acalculous cholecystitis. POSTOPERATIVE DIAGNOSIS(ES): Possible acalculous cholecystitis. PRINCIPAL PROCEDURE: Laparoscopic cholecystectomy. INDICATION FOR PROCEDURE: The patient is a 51-year-old female with a history of cyclical vomiting syndrome who presented with several days of upper abdominal pain and nausea, vomiting. The patient has had several conflicting studies, with an outside CT scan on October 28, which was normal, an ultrasound here yesterday that suggests gallbladder wall thickening and pericholecystic fluid and possible acalculous cholecystitis, last night she had a normal HIDA scan and this morning she had an EGD by GI service. Patient still has elevated white blood count and upper abdominal symptoms. PRINCIPAL FINDING: The gallbladder was not gangrenous. It actually appeared benign. However, during dissection there was some edema within the wall of the gallbladder which suggests mild cholecystitis. A cholangiogram was attempted. However, I was not able to cannulate the cystic duct because it was rather small. Therefore, the cholangiogram was abandoned. Other Diagnostics PROCEDURE: NM HIDA SCAN WITH CCK PHARMACEUTICAL: 5.4 mCi Tc-99m mebrofenin IV; 1.8 mcg CCK IV. INDICATIONS: NAUSEA AND VOMITING. R/O BILIARY CHOLIC. IMPRESSION: Normal examination Dictated by: Kenzie Bah MD, PhD on 10/31/2016 at 21:13 Approved by: Kenzie Bah MD, PhD on 10/31/2016 at 21:15 PROCEDURE: US ABDOMEN, LIMITED ([id number]) INDICATIONS: r/o cholecystitis IMPRESSION: Gallbladder wall thickening, pericholecystic fluid and positive sonographic Iniguez sign suspicious for acute acalculus cholecystitis. Dictated by: Kenzie Bah MD, PhD on 10/31/2016 at 13:20 Approved by: Kenzie Bah MD, PhD on 10/31/2016 at 13:21 Brief History Patient is a 51-year-old female with history of cyclical vomiting syndrome who presented to [facility] ED this morning with 3 days of nausea and vomiting. Over the last 3 days she has been seen first in the [facility] emergency department and then also yesterday the [facility] emergency department. She states this is somewhat similar to her prior episodes of cyclic vomiting the most recent of those episodes happened 10 months ago. The symptoms are more severe this time. Typically episodes for her last one to 2 days and then she is fine afterward. She states that she does not usually suffer during prior episodes. She c/o nausea but has no epigastric pain. She does endorse radiation of RUQ pain to the thoracic spine. She has anorexia. She denies hematemesis and hematochezia. At the time of this interview she has just come from the ED, has received number of anti emetic medications as well as ativan and was very sleepy. She endorses smoking marijuana once every 10 days. States "I doubt it" if she knew marijuana would cause nausea and vomiting. CT scan done at [facility] 10/28/2016 did not show evidence of cholecystitis however ultrasound performed in the emergency department did show evidence of possible gallbladder thickening and positive Iniguez's sign. Liver enzymes are normal, she has a leukocytosis of 21,000. Potassium was 3.2. Patient denies fever, chills, recent weight loss/weight gain. She has some back pain, but denies chest pain, leg pain, leg swelling, urinary problems. She was given haldol, phenergan, reglan, decadron and atival all IV in the ED. She says she had absolutely no relief after all these agents. She is not responding to my questions very well but her son was in the room and was very helpful with the interview. Hospital Course This is a 51-year-old white female with Past medical history of cyclical vomiting syndrome, presenting to the ER with right upper quadrant pain and uncontrollable nausea and vomiting. CT abdomen done in [facility] prior to this admission is negative for cholelithiasis cystitis or cholelithiasis. #1 Acalculous Cholecystitis -- She has no elevation in LFT, ordered pancreatic enzymes both of which are negative. No hyperbilirubinemia, no fevers -- HIDA scan was negative -- She did have right upper quadrant tenderness on palpation, ordered a ultrasound of right upper quadrant that is revealing for positive sonographic Iniguez sign, and thickened gallbladder gould. It was read as aCalculus cholecystitis. -- Consult Gen Surg: General surgery Patient underwent cholecystectomy. Intraoperative finding of mild cholecystitis. Patient states she [place] immediate relief after the procedure. -- patient was started on Unasyn ( she reportedly has a penicillin allergy but tolerated the first dose finding, discussed this with pharmacy and they feel it is okay to continue to give her the medication as she has had no rash or increase in her baseline symptoms). Will discharge her on Keflex for few more days -Percocet for pain control #2 erosive esophagitis: -- It is felt that nausea could have been due to GERD patient reportedly has had EGD with normal results end of last year -- Endoscopy Shows severe esophagitis -- Discharge patient on Protonix by mouth twice a day. Recommend follow-up with GI for repeat endoscopy in few weeks #4 Hyperglycemia : Blood glucose was 140 fasting -- A1c is ordered. Follow-up results with PCP Disposition: Discharged home Condition on discharge stable Exam Vital Signs (Last) Date Time Temp Pulse Resp B/P Pulse Ox O2 Delivery O2 Flow Rate FiO2 11/02/16 09:40 36.9 72 20 151/88 96 Room Air 11/01/16 15:21 2.00 Exam Gen.: No acute distress, patient is pleasant and cooperative HEENT: Normocephalic atraumatic Heart: Regular rate and rhythm no S3-S4 sounds Lungs: No crackles and wheezes, clear to auscultation Abdominal exam: Soft abdomen with no tenderness. Clearly dressed laparoscopic site Psych: Negative for anxiety and agitation Neuro: No focal deficits Test 10/31/16 05:45 10/31/16 06:20 10/31/16 14:00 11/01/16 06:08 Amylase Level 33U/L (28-100) Lipase 38U/L (13-60) Hold Morillo Top Tube Received (Received) Hold Urine Received (Received) Prothrombin Time 11.2sec (8.1-12.5) Prothromb Time International Ratio 1.05ratio Test 11/02/16 06:22 White Blood Count 12.4th/mm3 (3.8-10.1) Red Blood Count 4.12mil/mm3 (3.90-5.20) Hemoglobin 12.5g/dL (12.0-15.6) Hematocrit 37.0% (35.0-46.0) Mean Corpuscular Volume 89.8fL (81-100) Mean Corpuscular Hemoglobin 30.3pg (27.0-35.0) Mean Corpuscular Hemoglobin Concent 33.8% (32.0-37.0) Red Cell Distribution Width 12.5% (12.3-15.4) Platelet Count 209bil/L (150-400) Neutrophils (%) (Auto) 78.6% (40-74) Lymphocytes (%) (Auto) 13.1% (14-46) Monocytes (%) (Auto) 7.3% (4-12) Eosinophils (%) (Auto) 0.6% (0-5) Basophils (%) (Auto) 0.1% (0-3) Sodium Level 140mEq/L (134-144) Potassium Level 3.6mEq/L (3.5-5.2) Chloride Level 105mEq/L (97-108) Carbon Dioxide Level 22mmol/L (18-29) Blood Urea Nitrogen 15mg/dL (6-24) Creatinine 0.84mg/dL (0.57-1.00) Estimat Glomerular Filtration Rate 102mL/min (>59) Glucose Level 98mg/dL (60-99) Calcium Level 8.6mg/dL (8.5-10.1) Magnesium Level 2.2mg/dL (1.6-2.6) Total Bilirubin 0.7mg/dL (0.0-1.2) Aspartate Amino Transf (AST/SGOT) 32U/L (0-50) Alanine Aminotransferase (ALT/SGPT) 52U/L (0-32) Alkaline Phosphatase 80U/L (25-150) Total Protein 5.6g/dL (6.4-8.4) Albumin 3.5g/dL (3.4-5.0) Procalcitonin 0.09ng/mL (0.00-0.08) Discharge Medications Discharge Medications Cephalexin (Keflex) 500 Mg Capsule 500 MG PO TID Prescribed by: ZEUS AGEE MD Pantoprazole DR (Protonix) 40 Mg Tablet 40 MG PO BID Prescribed by: ZEUS AGEE MD As needed oxyCODONE-Acetaminophen 5-325 mg (oxyCODONE-Acetaminophen 5-325 mg) 1 Each Tablet 1 TAB PO Q6H PRN PRN For Pain Prescribed by: ZEUS AGEE MD Miscellaneous Medications ([No Active Meds]) (Reported) Followup Plan Disposition: Home Discharge Diet: Low fat, Low Sodium Discharge Activity: Limited until seen by PCP Patient Instructions You were hospitalized due to nausea and vomiting . workup ( Ultrasound ) revealed possible cholecystitis and underwent cholecystectomy . Please continue Augmentin for 3 more days . You also had endoscopy which showed severe erosive esophagitis .Please take protonix as prescribed and follow GERD behavioral modification: - Avoid fatty, acidic, spicy, large meals - Do not lie down after meals - Do not eat or drink anything for at least 2 1/2 hours before going to bed at night - Discontinue tobacco and alcohol - Decrease or avoid caffeine - Avoid chocolate and mints - Decrease weight - Avoid aspirin and non steroidal anti-inflammatory agents (NSAID) such as Aleve, Advil, Mobic, Naproxen, Ibuprofen, etc Please follow up with surgeon Dr Rush in 2 weeks and also follow up with Dr Chad Walsh in 3-4 weeks for repeat endoscopy to make sure esophagus is healing . Follow-up with PCP in: 1 week (Dr Raymundo sims ) Provider: Rigoberto Rush MD Follow-up in: 2 weeks Mid-level Provider: Jay Bonilla MD Follow-up with Mid-level in: 4 weeks Time spent 35 minutes copies to: Jay Bonilla MD; Rigoberto Rush MD, Melaku MD Nov 02, 2016 13:08
--- NOTE | 2016-11-04 13:31 | PATH ---
SURGICAL PATHOLOGY Attending Physician:Rigoberto Rush M.D. CASE STATUS: Signed Out PATIENT NAME: EMORY FRY PID: [id number] : 1965 DATE COLLECTED:11/01/2016 00:00 SPECIMEN: 1: Gallbladder 2: Duodenum, Biopsy 3: Esophagus, Biopsy 4: Gastric, Biopsy CLINICAL HISTORY: POSSIBLE CHOLECYSTITIS 1). GALLBLADDER 2). DUODENAL LINEAR EROSION BIOPSIES 3). EROSIVE ESOPHAGITIS BIOPSIES 4). GASTRIC BIOPSIES FINAL DIAGNOSIS: 1.GALLBLADDER: ACALCULOUS CHRONIC CHOLECYSTITIS. 2.DUODENAL LINEAR EROSION BIOPSIES: FOCAL ACUTE DUODENITIS WITH FOCAL ULCERATION. Negative for dysplasia and malignancy. 3.EROSIVE ESOPHAGITIS BIOPSIES: ESOPHAGEAL TISSUE WITH ACUTE AND CHRONIC INFLAMMATION AND ULCERATION. REACTIVE SQUAMOUS EPITHELIAL CHANGES, BUT NEGATIVE FOR MALIGNANCY. PASD STAIN NEGATIVE FOR FUNGI. Negative for viral inclusions. 4.GASTRIC BIOPSIES: DIFFUSE MILD CHRONIC GASTRITIS INVOLVING ANTRAL MUCOSA. Negative for evidence of Helicobacter. Negative for intestinal metaplasia. Negative for dysplasia and malignancy. ICD10 K81.1 GROSS DESCRIPTION: 1). The specimen is received in one formalin filled container labeled with the patient's name, sublabeled "gallbladder" and consists of an opened 7.5 x 2.0 x 1.5 CM gallbladder. The serosa is smooth. The cystic duct is possibly identified. The wall is 0.2-0.5 CM in thickness. The mucosa is a dark green in color. The lumen contains a dark green mucoid material and no calculus are noted. 5 motor vehicle field representative sections are submitted in cassette 1A. 2). The specimen is sublabeled "duodenal linear erosion" and consists of a 0.3 x 0.3 x 0.2 CM portion of tissue which is entirely submitted in cassette 2A. 3). The specimen is sublabeled "erosive esophagitis" and consists of a 0.2 x 0.2 x 0.2 CM portion of tissue which is entirely submitted in cassette 3A. 4). The specimen is sublabeled "gastric" and consists of 3 portions of tissue which aggregate to 0.2 x 0.2 x 0.2 CM. The specimen is entirely submitted in cassette 4A. 11/02/2016 DAC MICRO DESCRIPTION: See diagnosis. ICD-9 CODES: CPT CODES: 1: 85725 2: 38920 3: 47980, 75432 4: 48911 Electronically Signed Out Yossi Motley MD [facility] [address], [place] [address] Technical component performed at [facility], [address], [place], [address]
== END 2016-11-02 12:30 | disposition home or self-care (01) ==
LOC: SED 05:19 → UNDOADMOB 08:04 → MOC 08:04
PROVIDERS: ADMIT Family Medicine; ATTEND Family Medicine
DX: K81.1 Chronic cholecystitis (principal); K25.9 Gastric ulcer, unspecified as acute or chronic, without hemorrhage or perforation; K22.10 Ulcer of esophagus without bleeding; K26.9 Duodenal ulcer, unspecified as acute or chronic, without hemorrhage or perforation; K20.8 Other esophagitis; K29.50 Unspecified chronic gastritis without bleeding; G43.A0 Cyclical vomiting, in migraine, not intractable; Z79.891 Long term (current) use of opiate analgesic
CPT/HCPCS: 36415; 43239; 47562; 76705; 78227; 80053; 82150; 83036; 83690; 83735; 84145; 85025; 85027; 85610; 87040; 94799; 96361; 96374; 96375; 99285; A9537; G0378; J0131; J0295; J1100; J1200; J1630; J1644; J1885; J2060; J2270; J2405; J2550; J2710; J2765; J2805; J3010; J3480; J7030; J7120